=== PATIENT | male | born 1945 | race Caucasian/White ===

== ENCOUNTER → 2019-10-25 | Outpatient (CLI) | payer MEDICARE ==
[2019-10-25 15:37] LABS: ANION GAP 10 (5-19); BLOOD UREA NITROGEN 18 mg/dL (7-20); CALCIUM 9.6 mg/dL (8.4-10.2); CARBON DIOXIDE 27 mmol/L (22-30); CHLORIDE 97 mmol/L (98-107); GLUCOSE 313 mg/dL (75-110); POTASSIUM 4.9 mmol/L (3.6-5.0)
== END ==
LOC: OD 14:18
PROVIDERS: ATTEND Anesthesiology
DX: Z01.812 Encounter for preprocedural laboratory examination (principal)
CPT/HCPCS: 36415; 80048

== ENCOUNTER → 2019-11-22 | Outpatient (CLI) | payer MEDICARE ==
--- NOTE | 2019-11-22 13:38 | RADIOLOGY REPORT (SQ) ---
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 TECHNIQUE: Blood glucose level was verified. Above dose of FDG was injected intravenously. 2-D seg mented attenuation correction images were obtained from the base of the skull to the midthighs. Nonc ontrast CT images were obtained for attenuation correction and fusion with emission images. CT image s were performed without oral or intravenous contrast and are not sensitive for parenchymal lesions. A series of overlapping emission PET images were obtained. Images reviewed and manipulated at [email or web address] work [facility] by the radiologist. Images stored on PACS. LIMITATIONS: None. FINDINGS: HEAD AND NECK: Asymmetric left vallecular and base of tongue soft tissue with increased FD G uptake (max SUV 5.9). Enlarged submandibular left-sided lymph node measuring 2.2 cm in short axis (series 3, image 30) with increased uptake (max SUV 4.7). Additional enlarged level 2 node measuring 14 mm in short axis (series 3, image 41) with avid uptake (max SUV 7.7). Non pathologically enlarge d more inferior level 2 node with mild uptake (max SUV 4.6). No evidence of contralateral hypermetab olic activity. CHEST: No areas of abnormal metabolic activity in the chest. No evidence of acute intrathoracic find ings. Scattered coronary atherosclerosis. ABDOMEN AND PELVIS: No areas of abnormal metabolic activity in the abdomen or pelvis. Expected physi ologic activity is present in the genitourinary system and bowel. PROXIMAL LOWER EXTREMITIES: No areas of abnormal metabolic activity in the soft tissues of the lower extremities. BONES: No abnormal metabolic activity in the visualized skeleton. ADDITIONAL CT FINDINGS: As above. OTHER: Background hepatic activity max SUV 3.3. IMPRESSION: 1. Hypermetabolic left base of tongue and vallecular asymmetric soft tissue (max SUV 5. 9) compatible with biopsy-proven malignancy. 2. Hypermetabolic left submandibular and level 2 lymphadenopathy (max SUV 7.7) compatible with ipsil ateral metastatic disease. 3. No evidence of contralateral or distant metastatic disease. TECHNICAL DOCUMENTATION: JOB ID: [id number] 2010 [employer]- All Rights Reserved Reading location - IP/workstation name: [email or web address]
== END ==
LOC: RAD 10:02
PROVIDERS: ATTEND Internal Medicine
DX: C01 Malignant neoplasm of base of tongue (principal)
CPT/HCPCS: 78815; A9552

== ENCOUNTER → 2020-06-12 | Outpatient (CLI) | payer MEDICARE ==
--- NOTE | 2020-06-13 10:34 | RADIOLOGY REPORT (SQ) ---
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 TECHNIQUE: Blood glucose level was verified. Above dose of FDG was injected intravenously. 2-D seg mented attenuation correction images were obtained from the base of the skull to the midthighs. Nonc ontrast CT images were obtained for attenuation correction and fusion with emission images. CT image s were performed without oral or intravenous contrast and are not sensitive for parenchymal lesions. A series of overlapping emission PET images were obtained. Images reviewed and manipulated at [facility] work station by the radiologist. Images stored on PACS. LIMITATIONS: None. FINDINGS: HEAD AND NECK: There is increased metabolic activity involving the tongue. There is a foc al area of activity in the midline with an SUV of 5.8. This extends into the anterior mainly left la teral aspect of the tongue with the SUV is 6.1. Uptake in the left vallecular previously described i s no longer identified. Large nodes in the left aspect of the neck are again noted no abnormal activ ity. CHEST: No areas of abnormal metabolic activity in the chest. ABDOMEN AND PELVIS: No areas of abnormal metabolic activity in the abdomen or pelvis. Expected physi ologic activity is present in the genitourinary system and bowel. PROXIMAL LOWER EXTREMITIES: No areas of abnormal metabolic activity in the soft tissues of the lower extremities. BONES: No abnormal metabolic activity in the visualized skeleton. ADDITIONAL CT FINDINGS: Enlarged left cervical lymph nodes which are now at least partially calcified . Thickened bladder wall. This is nonspecific may be secondary to cystitis or incomplete distention . Prostate is enlarged and unchanged from prior study. OTHER: No other significant findings. IMPRESSION: Increasing metabolic activity within the tongue. SUV ranges from 5.8 to 6.1. No eviden ce of distant metastasis. Thickened bladder wall. Enlarged prostate. This is grossly stable from prior study. TECHNICAL DOCUMENTATION: JOB ID: [id number] 2010 [employer] All Rights Reserved Reading location - IP/workstation name: [email or web address]
== END ==
LOC: RAD 07:53
PROVIDERS: ATTEND Physician Assistant Medical
DX: C01 Malignant neoplasm of base of tongue (principal)
CPT/HCPCS: 78815; A9552